=== PATIENT | male | born 1955 | race Caucasian/White ===

== ENCOUNTER 2021-07-12 09:52 | Observation (INO) ==
[2021-07-12 10:55] LABS: Albumin 3.7 G/DL (3.4-5.0); Bilirubin,Total 0.6 MG/DL (0.20-1.00); Calcium 8.7 MG/DL (8.5-10.1); Osmolality,Calculated 277.8 MOS/KG (273-304); Potassium 4.3 MMOL/L (3.5-5.1); Total Protein 7.2 G/DL (6.4-8.2)
[2021-07-12] MEDS ORDERED: ENOXAPARIN 30 MG/0.3 ML SYRINGE SUBCUT STA (11:33)
[2021-07-12 12:11] LABS: Basophils # 0.1 10*3/uL (0.0-0.2); Basophils % 0.6 % (0.0-0.8); Eosinophils % 0.1 % (0.00-10.9); Hematocrit 51.2 VOL% (42.0-52.0); Hemoglobin 16.7 GM/DL (14.0-18.0); Immature Granulocytes % 0.5 %; Immature Granulocytes Absolute 0.05 #; Lymphocytes # 0.8 10*3/uL (1.4-4.0); Lymphocytes % 6.8 % (21.2-54.2); Mean Corpuscular HGB Conc 32.6 GM/DL (32-36); Mean Corpuscular Volume 95.2 FL (87-102); Mean Platelet Volume 9.8 FL (9.6-12.0); Monocytes % 3.5 % (1.7-12.7); Neutrophils % 88.5 % (38.7-73.9); Platelet Count 270 T/CUMM (130-400); Red Blood Count 5.38 MC/CUMM (3.8-5.5)
[2021-07-12] MEDS ORDERED: GLUCAGON 1 MG VIAL IM PRN (12:33)
[2021-07-12] MEDS ORDERED: ALBUTEROL 2.5 MG/3 ML NEB RESP TX PRN (12:33)
[2021-07-12] MEDS ORDERED: ONDANSETRON 4 MG/2 ML VIAL IV PRN (12:33)
[2021-07-12] MEDS ORDERED: MORPHINE 2 MG/1 ML SYRINGE IV PRN (12:33)
[2021-07-12] MEDS ORDERED: LACTULOSE 20 GM/30 ML UDCUP PO PRN (12:33)
[2021-07-12] MEDS ORDERED: DEXTROSE 50% 25 GM/50 ML VIAL IV PRN (12:33)
[2021-07-12] MEDS ORDERED: ALUMINUM/MAGNES/SIMETH MAX STR 30 ML UDCUP PO PRN (12:33)
[2021-07-12] MEDS ORDERED: DOCUSATE SODIUM 100 MG CAPSULE PO PRN (12:33)
[2021-07-12] MEDS ORDERED: ACETAMINOPHEN 325 MG TABLET PO PRN (12:33)
[2021-07-12] MEDS ORDERED: ASPIRIN CHEW 81 MG TABLET PO STA (12:36)
[2021-07-12] MEDS ORDERED: ENOXAPARIN 100 MG/ML SYRINGE SUBCUT ONE (12:41)
[2021-07-12 13:23] LABS: PT Patient Result 10.9 SECS (10.5-12.0)
[2021-07-12] MEDS ORDERED: diphenhydrAMINE CAP 25 MG CAPSULE PO ONE (14:39)
[2021-07-12] MEDS ORDERED: MAGNESIUM SULF RIDER 2 GM/50 ML PREMIX IV PRN (14:39)
[2021-07-12] MEDS ORDERED: POTASSIUM CHLORIDE RIDER 10 MEQ/100 ML PREMIX IV PRN (14:39)
[2021-07-12] MEDS ORDERED: DIAZEPAM 5 MG TABLET PO ONE (14:39)
[2021-07-12] MEDS ORDERED: ENOXAPARIN 30 MG/0.3 ML SYRINGE IV STA ×2 (14:40→14:49)
[2021-07-12] MEDS ORDERED: TIROFIBAN IV ONE (14:43)
[2021-07-12] MEDS: NITROGLYCERIN 2% OINT 1 INCH/GM PACK TOP SCH ×2 (14:44→21:43)
[2021-07-12] MEDS ORDERED: TIROFIBAN 0 MCG/0 ML PREMIX IV ONE (14:53)
[2021-07-12] MEDS: SODIUM CHLORIDE 0.9% 1,000 ML IV SCH (16:24)
[2021-07-12] MEDS ORDERED: INFLUENZA VIRUS VACCINE 0.5 ML SYRINGE IM ONE (16:28)
[2021-07-12] MEDS ORDERED: LIDOCAINE 1% 20 ML VIAL ONE (16:33)
[2021-07-12] MEDS ORDERED: HYDROmorphone 2 MG/1 ML VIAL ONE ×2 (16:50→17:59)
[2021-07-12] MEDS ORDERED: TIROFIBAN 5,000 MCG/100 ML PREMIX IV ONE (16:50)
[2021-07-12] MEDS ORDERED: MIDAZOLAM 2 MG/2 ML VIAL ONE (16:50)
[2021-07-12] MEDS ORDERED: NITROPRUSSIDE 50 MG/2 ML VIAL ONE (17:26)
[2021-07-12] MEDS ORDERED: LABETALOL 20 MG/4 ML SYRINGE IV ONE (18:07)
[2021-07-12] MEDS ORDERED: TICAGRELOR 90 MG TABLET ONE (18:13)
[2021-07-12] MEDS: TIROFIBAN 5,000 MCG/100 ML PREMIX IV SCH ×2 (18:34→19:43)
[2021-07-12 20:28] LABS: CKMB % 7.2 %
[2021-07-12 20:38] LABS: High Sensitive Troponin I* 3758.4 ng/L (0-78)
[2021-07-12] MEDS ORDERED: ESCITALOPRAM 10 MG TABLET PO SCH (21:00)
[2021-07-12] MEDS ORDERED: EMTRICITABINE TENOFOVIR ALAFEN PO SCH (21:00)
[2021-07-12] MEDS ORDERED: ATORVASTATIN 40 MG TABLET PO SCH (21:00)
[2021-07-12] MEDS: carvediloL 3.125 MG TABLET PO SCH (21:44)
[2021-07-12] MEDS: METOPROLOL TARTRATE 25 MG TABLET PO SCH (21:44)
[2021-07-12] MEDS ORDERED: ENOXAPARIN 80 MG/0.8 ML SYRINGE SUBCUT SCH (23:00)
[2021-07-13] MEDS: NITROGLYCERIN 2% OINT 1 INCH/GM PACK TOP SCH ×2 (02:52→07:32)
[2021-07-13] MEDS: TIROFIBAN 5,000 MCG/100 ML PREMIX IV SCH ×3 (02:52→07:31)
[2021-07-13 06:24] LABS: Basophils # 0.1 10*3/uL (0.0-0.2); Eosinophils # 0.1 10*3/uL (0.0-0.87); Eosinophils % 1.1 % (0.00-10.9); Hematocrit 48.7 VOL% (42.0-52.0); Hemoglobin 16.2 GM/DL (14.0-18.0); Immature Granulocytes % 0.4 %; Immature Granulocytes Absolute 0.04 #; Lymphocytes # 2.7 10*3/uL (1.4-4.0); Lymphocytes % 25.3 % (21.2-54.2); Mean Corpuscular HGB Conc 33.3 GM/DL (32-36); Mean Platelet Volume 9.6 FL (9.6-12.0); Monocytes % 9.1 % (1.7-12.7); Neutrophils % 63.1 % (38.7-73.9); Platelet Count 253 T/CUMM (130-400); Red Blood Count 5.18 MC/CUMM (3.8-5.5); White Blood Count 10.5 T/CUMM (4-12)
[2021-07-13 06:45] LABS: CKMB % 5.5 %; High Sensitive Troponin I* 2587.5 ng/L (0-78)
[2021-07-13 06:51] LABS: Osmolality,Calculated 273.8 MOS/KG (273-304); Potassium 3.6 MMOL/L (3.5-5.1); Risk Ratio 5.21; Thyroid Stimulating Hormone 1.05 uIU/ml (0.358-3.74); VLDL Cholesterol 41.6 MG/DL
[2021-07-13] MEDS: SODIUM CHLORIDE 0.9% 1,000 ML IV SCH (07:26)
[2021-07-13] MEDS ORDERED: PANTOPRAZOLE 40 MG TABLET PO SCH (09:00)
[2021-07-13] MEDS ORDERED: ASPIRIN EC 81 MG TABLET PO SCH (09:00)
[2021-07-13] MEDS ORDERED: TICAGRELOR 90 MG TABLET PO SCH (09:00)
[2021-07-13] MEDS: METOPROLOL TARTRATE 25 MG TABLET PO SCH (09:07)
[2021-07-13] MEDS: carvediloL 3.125 MG TABLET PO SCH (09:07)
[2021-07-13 11:38] VITALS: BP 127/79
== END 2021-07-13 13:52 | disposition home or self-care (01) ==
LOC: EDUNIT# → EDBD → N.EDINP 09:52 → N.ED 09:52 → N.TELES 15:50
PROVIDERS: ADMIT Internal Medicine; ATTEND Internal Medicine
PROC: CLCCHCL (ICD-10-PCS; 2021-07-12 16:15)